=== PATIENT | male | born 1995 | race Caucasian/White ===

== ENCOUNTER 2024-07-15 22:33 | Emergency (ER) | payer OTHER, SELFPAY ==
[2024-07-15 22:39] VITALS: BP 142/94; PULSE 115; TEMP 36.9; O2SAT 96; BMI 24.4
--- NOTE | 2024-07-15 23:05 | ED.FALL1 ---
HPI HPI - Fall General Chief Complaint: Fall Time Seen by Provider: 07/15/24 22:54 Source: patient Mode of arrival: walk-in Limitations: no limitations History of Present Illness HPI Narrative: 29-year-old male presents to the emergency department for chief complaint of abrasion to his face. He was playing golf today and has been drinking and he fell and scraped the right side of his face on the ground. No other injury. He states it really does not hurt and he does not have a headache or neck pain and no other injury was sustained. This happened just before coming into the emergency department Related Data Allergies Allergy/AdvReac Type Severity Reaction Status Date / Time Sulfa (Sulfonamide Allergy Hives Verified 07/15/24 22:39 Antibiotics) Opioid HPI Opioid Management Most Recent Pain and Opioid Data: No Data to Display Review of Systems ROS Narrative A ten point review of systems is negative except as noted above. Exam Narrative Exam Narrative: Nurses note and vital signs reviewed and patient is not hypoxic. General: The patient appears well and in no apparent distress. Patient is resting comfortably on cart. Skin: Warm, dry, no pallor noted. There is no rash noted. Head: Normocephalic, superficial abrasion present on the right side of his face below his right eye. No laceration. Cervical spine nontender. Eye: Normal conjunctiva, no drainage Ears, Nose, Mouth, and Throat: oral mucosa is moist. Nares patent. Cardiovascular: Regular Rate and Rhythm Respiratory: Patient is in no distress, no accessory muscle use, lungs are clear to auscultation, no wheezing, rales or rhonchi Back: non-tender, including cervical thoracic and lumbar spines. GI: Soft and nontender Musculoskeletal: No tenderness to all 4 extremity Neurological: A&O x4, normal speech Psychiatric: Cooperative Constitutional Vital Signs, click to edit/add: Last Vital Signs Temp 98.4 F 07/15/24 22:39 Pulse 115 H 07/15/24 22:39 Resp 20 07/15/24 22:39 BP 142/94 H 07/15/24 22:39 Pulse Ox 96 07/15/24 22:39 O2 Del Method Room Air 07/15/24 22:39 Course Vital Signs Vital signs: Vital Signs Temperature 98.4 F 07/15/24 22:39 Pulse Rate 115 H 07/15/24 22:39 Respiratory Rate 20 07/15/24 22:39 Blood Pressure 142/94 H 07/15/24 22:39 Pulse Oximetry 96 07/15/24 22:39 Oxygen Delivery Method Room Air 07/15/24 22:39 Temperature 98.4 F 07/15/24 22:39 Pulse Rate 115 H 07/15/24 22:39 Respiratory Rate 20 07/15/24 22:39 Blood Pressure 142/94 H 07/15/24 22:39 Pulse Oximetry 96 07/15/24 22:39 Oxygen Delivery Method Room Air 07/15/24 22:39 MDM - Fall MDM Narrative Medical decision making narrative: Tetanus is up-to-date. CT scan is not indicated and the patient is able to be discharged home. Findings are discussed with the patient and his mother. Differential Diagnosis Differential diagnosis: Likely other (Abrasion, laceration) Discharge Plan Discharge Stand Alone Forms: Portal Instructions Chief Complaint: Fall Clinical Impression: Abrasion of face Patient Disposition: Home, Self-Care Time of Disposition Decision: 23:05 Condition: Good Mode of Transportation: Private Vehicle Print Language: Barb[place] Instructions: Abrasion (ED) Referrals: Physician,Non-Staff, MD [Primary Care Provider] - 1 week
--- NOTE | 2024-07-15 23:12 | PC.NURSE ---
Abrasion under right eye, no active bleeding.
== END 2024-07-15 23:13 | disposition home or self-care (01) ==
PROVIDERS: Emergency Provider Emergency Medicine; Family Provider Family Medicine; PCP Family Medicine
DX: S00.81XA Abrasion of other part of head, initial encounter (principal); W19.XXXA Unspecified fall, initial encounter
CPT/HCPCS: 99284